=== PATIENT | female | born 2000 | race Caucasian/White ===

== ENCOUNTER 2023-12-09 17:53 | Emergency (ER) | payer OTHER ==
[~2023-12-09] VITALS: Ht 170.2 cm; Wt 72.6 kg
[2023-12-09 18:06] VITALS: BP 130/72; TEMP 99.7; O2SAT 100
[2023-12-09] MEDS ORDERED: ACETAMINOPHEN ES 500 MG TABLET ONE (18:59)
[2023-12-09] MEDS ORDERED: IBUPROFEN 600 MG TABLET ONE (19:00)
[2023-12-09] MEDS: IBUPROFEN 600 MG TABLET PO ONE (19:03)
[2023-12-09] MEDS: ACETAMINOPHEN ES 500 MG TABLET PO ONE (19:04)
[2023-12-09] MEDS ORDERED: IBUP-1955 PO (19:22)
[2023-12-09] MEDS ORDERED: ACET-2605 PO (19:22)
[2023-12-09] MEDS ORDERED: CYCL5TAB PO (19:22)
[2023-12-09] MEDS ORDERED: CYCLOBENZAPRINE 10 MG TABLET ONE (19:34)
[2023-12-09] MEDS: CYCLOBENZAPRINE 10 MG TABLET PO ONE (19:35)
== END 2023-12-09 19:36 | disposition home or self-care (01) ==
LOC: ER 18:03
DX: R07.89 Other chest pain (principal)
CPT/HCPCS: 71045-TC